=== PATIENT | female | born 1950 | race Caucasian/White ===

== ENCOUNTER 2018-03-29 13:13 | Outpatient (CLI) | payer MEDICARE, OTHER ==
[2018-03-29 14:37] LABS: eGFR (African) > 60; eGFR (Non-African) > 60
== END 2018-03-29 13:15 ==
LOC: LAB 13:13
PROVIDERS: ATTEND Nurse Practitioner Family
DX: R10.11 Right upper quadrant pain (principal)
CPT/HCPCS: 36415; 80053; 82150